=== PATIENT | female | born 2000 | race Caucasian/White ===

== ENCOUNTER 2022-07-11 22:24 | Emergency (ER) | payer MEDICAID, SELFPAY ==
--- NOTE | ~2022-07-11 | US_ITS ---
Pelvic ultrasound. Clinical History: First trimester , pelvic pain, evaluate for ectopic Technique: Realtime transabdominal and transvaginal scanning of the pelvis was performed. Color flow Doppler and Doppler spectral analysis were performed. Findings: The uterus is anteverted, and contains an intrauterine gestation. [place]-rump length of 5 cm corresponds to an estimated gestational age of 11 weeks 5 days. heart rate is 173 bpm. The right ovary measures 2.2 x 1.7 x 1.9 cm. No significant right ovarian or adnexal mass is seen. The left ovary measures 3.6 x 2.8 x 2.2 cm. No significant left ovarian or adnexal mass is seen. There is no evidence of free fluid in the cul de sac. Impression: Live intrauterine gestation with estimated gestational age of 11 weeks 5 days. heart rate is 17 3 bpm. Reviewed, dictated and finalized at [facility]. Impression: Live intrauterine gestation with estimated gestational age of 11 weeks 5 days. heart rate is 173 bpm.
[2022-07-11 22:27] VITALS: BP 102/81; PULSE 99; RESP 17; TEMP 36.4; O2SAT 100
[2022-07-11 22:49] VITALS: O2SAT 100
[2022-07-11 23:38] LABS: Influenza A QL RT-PCR Negative (Negative); Influenza B QL RT-PCR Negative (Negative); SARS-CoV-2 RNA PCR Negative (Negative)
--- NOTE | 2022-07-12 00:30 | ED.URI ---
HPI - URI/Sore Throat General Chief Complaint: Upper Respiratory Infection <RADHA Vaughan Last Filed: 07/12/22 03:58> Stated Complaint: headaches, sore throat <RADHA Vaughan Last Filed: 07/12/22 03:58> Time Seen by Provider: 07/11/22 22:32 <RADHA Vaughan Last Filed: 07/12/22 03:58> Source: patient <RADHA Vaughan Last Filed: 07/12/22 03:58> Mode of arrival: ambulatory <RADHA Vaughan Last Filed: 07/12/22 03:58> Limitations: no limitations <RADHA Vaughan Last Filed: 07/12/22 03:58> History of Present Illness HPI Narrative: Patient is a 22-year-old female who presents to the ED with multiple complaints. Patient reports having intermittent headaches and a sore throat since last. She denies any sick contacts. She has not taken anything for symptoms. She denies cough, fevers, vision changes. Patient also reports she is currently around 8 weeks gestation. She reports her last normal menstrual period of May 13. This makes her G2, P1. She is new to the area and does not currently have an OB to follow-up with. She has not had an ultrasound yet for this . She reports having intermittent nausea and vomiting for the last 1 month, worse over the last couple days. She reports she has been unable to keep down any food or drink over the last couple of days. She also reports having intermittent left lower abdominal pain for the last 1 week, again worse today. Denies any diarrhea, constipation, rectal bleeding, hematemesis, vaginal bleeding, vaginal discharge. <RADHA Vaughan Last Filed: 07/12/22 03:58> Related Data Allergies/Adverse Reactions: Allergies Allergy/AdvReac Type Severity Reaction Status Date / Time No Known Allergies Allergy Verified 07/11/22 22:53 <RADHA Vaughan Last Filed: 07/12/22 03:58> Review of Systems Review of Systems: CONSTITUTIONAL: Denies fever, chills, or sweats. EYES: Denies visual changes. ENT: See HPI. CARDIOVASCULAR: Denies chest pain. RESPIRATORY: Denies cough or dyspnea. GASTROINTESTINAL: See HPI. GENITOURINARY: Denies dysuria or hematuria. NEUROLOGIC: See HPI. <Trupti Moffett PA-C - Last Filed: 07/12/22 03:58> All systems reviewed & are unremarkable except as noted in HPI and below <Trupti Moffett PA-C - Last Filed: 07/12/22 03:58> PMFSH Past Medical History Medical History: Medical History (Updated 07/12/22 @ 03:54 by Trupti Moffett PA-C) No pertinent past medical history <Trupti Moffett PA-C - Last Filed: 07/12/22 03:58> Surgical History Surgical History: Surgical History (Updated 07/12/22 @ 00:33 by Trupti Moffett PA-C) No pertinent past surgical history <Trupti Moffett PA-C - Last Filed: 07/12/22 03:58> Social History Social History: Social History (Updated 07/12/22 @ 00:33 by Trupti Moffett PA-C) Smoking status: Never smoker <Trupti Moffett PA-C - Last Filed: 07/12/22 03:58> Exam Narrative: GENERAL: Well appearing, well-nourished, non-toxic, in no acute distress. HEAD: Normocephalic, atraumatic. EYES: PERRLA/EOMI, conjunctiva clear. ENT: Mild posterior pharynx erythema. No tonsillar hypertrophy or exudate. Uvula midline. NECK: Supple. No adenopathy, no masses. RESPIRATORY: Airway patent, respirations nonlabored. Clear to auscultation bilaterally, no rales, rhonchi, wheezing. CARDIOVASCULAR: Regular rate and rhythm without murmurs, rubs, or gallops. Radial pulses 2+ and equal bilaterally. ABDOMINAL: Soft, tenderness throughout lower abdomen, worst in left lower quadrant, nondistended, no hepatosplenomegaly. Normoactive BS. MUSCULOSKELETAL: Moves all extremities. Strength/ROM intact without gross deformities. SKIN: Warm, dry, normal color. No rashes. NEURO: A&O X3. Speech clear. Cranial nerves II-XII grossly intac
[2022-07-12] MEDS: SODIUM CHLORIDE 0.9% IV 1,000 ML 999 ML IV CONT (00:50)
[2022-07-12 01:00] LABS: Basophils Percent Auto 0.3 % (0.2-1.2); Eosinophils Percent Auto 0.3 % (0-4.4); Hematocrit 34.6 % (37.0-47.0); Hemoglobin 11.6 g/dL (12.0-15.0); Immature Granulocyte Absolute 0.05 K/mm3 (0.00-0.031); Immature Granulocyte Percent A 0.4 % (0-0.5); Lymphocytes Absolute Auto 1.58 K/mm3 (0.9-3.2); Lymphocytes Percent Auto 12.2 % (18.3-44.2); Mean Corpuscular HGB Conc 33.5 g/dl (32-36); Mean Corpuscular Hemoglobin 26.8 pg (26-34); Mean Corpuscular Volume 79.9 fl (80-100); Mean Platelet Volume 10.4 fl (7.4-10.4); Monocytes Absolute Auto 0.6 K/mm3 (0.1-0.6); Monocytes Percent Auto 4.2 % (2.6-8.5); Neutrophils Absolute Auto 10.7 K/mm3 (1.3-6.7); Neutrophils Percent Auto 82.6 % (45.5-73.1); Platelet Count Result 256 k/mm3 (150-375); Red Blood Count 4.33 M/mm3 (4.2-5.4); Red Cell Distribution Width 13.6 % (11.5-14.5)
[2022-07-12 01:25] LABS: Alanine Aminotransferase 20 U/L (6-35); Albumin Level 4.2 g/dL (3.5-5.1); Alkaline Phosphatase 49 U/L (38-126); Anion Gap 7 mmol/L (8-16); Aspartate Amino Transferase 21 U/L (14-36); Bilirubin,Total 0.6 mg/dL (0.2-1.3); Blood Urea Nitrogen 6 mg/dL (7-17); Calcium 8.8 mg/dL (8.4-10.2); Carbon Dioxide 25 mmol/L (22-30); Chloride 100 mmol/L (98-107); Estimated CRCL calculation 153 ml/min; Estimated Glomerular Filt Rate > 60; Glucose 89 mg/dL (65-110); Potassium 3.4 mmol/L (3.4-5.0); Sodium 132 mmol/L (137-145)
[2022-07-12 01:50] LABS: Strep Group A RT-PCR NOT DETECTED (Negative)
[2022-07-12 02:26] LABS: Appearance Urine Clear (Clear); Bacteria Urine None Seen /hpf; Bilirubin Urine Negative (Negative); Blood Urine 2+ (Negative); Color Urine Dark Yellow (Yellow); Glucose Urine UA Negative (Negative); Ketones Urine 4+ mg/dL (Negative); Leukocyte Esterase Ur 1+ LEU/UL (Negative); Need Manual Microscopic Reviewed; Nitrate Urine Negative (Negative); Non Pathogenic Casts 0-2; Protein Urine Trace mg/dL (Negative); RBC Urine 21-50 /hpf (0-2); Specific Grav Ur 1.026 (1.001-1.035); Squamous Epithelial Cell Urine Occasional /hpf (Few); WBC Urine 0-5 /hpf; pH Urine 6.5 (5.0-9.0)
[2022-07-12 02:28] LABS: Add Urine Microscopic? YES
[2022-07-12] MEDS: DEXTROSE 5%/LACTATED RINGERS 1,000 ML 100 ML IV CONT (03:07)
[2022-07-12] MEDS: CEPHALEXIN 500 MG CAPSULE PO (03:07)
[2022-07-12] MEDS: ACETAMINOPHEN 500 MG TABLET 1000 MG PO (03:12)
[2022-07-12 03:14] VITALS: BP 100/57; PULSE 78; RESP 14; O2SAT 100
[2022-07-12 04:48] VITALS: BP 100/60; PULSE 84; RESP 14; O2SAT 100
== END 2022-07-12 04:50 | disposition home or self-care (01) ==
PROVIDERS: Emergency Provider Physician Assistant
DX: O99.511 Diseases of the respiratory system complicating pregnancy, first trimester (principal); J06.9 Acute upper respiratory infection, unspecified; O21.9 Vomiting of pregnancy, unspecified; R82.998 Other abnormal findings in urine; Z20.822 Contact with and (suspected) exposure to COVID-19; Z3A.11 11 weeks gestation of pregnancy
CPT/HCPCS: 36415; 76801; 80053; 81001; 84702; 85025; 87636; 87651; 96360; 96361; 99284; A9270; J7030; J7121

== ENCOUNTER 2022-11-06 07:29 | Observation (INO) | payer OTHER, SELFPAY ==
[2022-11-06] VITALS (11 sets, daily range): BP systolic 92–111; BP diastolic 43–61; PULSE 73–98; BMI 27.2
--- NOTE | 2022-11-06 08:00 | OBADM ---
This patient, Harriet Bernal, admitted to the OB room 116 for observation. Patient/family oriented to hospital policies and general routines including ID bracelet, bed and alarms, visiting hours, pain management, procedures, bathroom and other care routines, personal items, smoking policy, room service/diet, and visiting hours. Patient/Family are encouraged to report perceived risks to care and to ask questions if they do not understand what they are told or what they should do.
--- NOTE | 2022-11-06 08:08 | PC.NURSE ---
Dr. Dejesus returned call and informed of this 28 4/7 wks gestation walk in pt who arrived by ambulance with initial c/o constant right upper abdominal pain and shortly after arrival started having intermittent left lower abdominal cramping that correlated with contractions she is having. The RUQ pain has decreased per pt. MD informed of frequent contraction that palpate mild. Order received for SVE and Brethine.
--- NOTE | 2022-11-06 08:22 | PC.NURSE ---
Dr. Knight came to see pt per Dr. Dejesus's request. Additional orders received for IV fluids, Tylenol, and Zofran if needed.
[2022-11-06] MEDS: TERBUTALINE SULFATE 1 MG/ML VIAL 0.25 MG SUB-Q ×2 (08:23→11:03)
--- NOTE | 2022-11-06 08:51 | PM.OBTRLD ---
OB - Triage/Final Diagnosis Visit Information Date of evaluation: 11/06/22 Reason for evaluation: threatened labor Comments/Additional reasons for admission: I have assessed the risk for this patient, Harriet Bernal, and determined that she would benefit from observation care. Evaluation Vital signs: Vital Signs - 24 hr 11/06/22 07:55 11/06/22 08:00 11/06/22 08:22 Pulse Rate 73 82 87 Blood Pressure 106/50 L 111/61 105/52 L 11/06/22 08:30 Pulse Rate 92 Blood Pressure 97/43 L
--- NOTE | 2022-11-06 08:55 | PC.NURSE ---
Dr. Dejesus called back to check on pt. Informed contractions have resolved since Brethine given. Order received for labs.
[2022-11-06] MEDS: LACTATED RINGERS 1,000 ML 999 ML IV CONT (09:09)
[2022-11-06 09:18] LABS: Basophils Percent Auto 0.4 % (0.2-1.2); Eosinophils Absolute Auto 0.1 K/mm3 (0-0.3); Eosinophils Percent Auto 0.5 % (0-4.4); Hematocrit 31.3 % (37.0-47.0); Hemoglobin 9.7 g/dL (12.0-15.0); Immature Granulocyte Absolute 0.05 K/mm3 (0.00-0.031); Immature Granulocyte Percent A 0.4 % (0-0.5); Lymphocytes Absolute Auto 2.26 K/mm3 (0.9-3.2); Lymphocytes Percent Auto 20.2 % (18.3-44.2); Mean Corpuscular Hemoglobin 27.2 pg (26-34); Mean Corpuscular Volume 87.7 fl (80-100); Mean Platelet Volume 11.1 fl (7.4-10.4); Monocytes Absolute Auto 0.5 K/mm3 (0.1-0.6); Neutrophils Absolute Auto 8.3 K/mm3 (1.3-6.7); Neutrophils Percent Auto 74.5 % (45.5-73.1); Platelet Count Result 212 k/mm3 (150-375); Red Blood Count 3.57 M/mm3 (4.2-5.4); Red Cell Distribution Width 13.5 % (11.5-14.5); White Blood Count 11.2 K/mm3 (4.5-10.0)
[2022-11-06 09:31] LABS: Alanine Aminotransferase 30 U/L (6-35); Albumin Level 3.2 g/dL (3.5-5.1); Alkaline Phosphatase 71 U/L (38-126); Amylase 78 U/L (30-110); Anion Gap 3 mmol/L (8-16); Aspartate Amino Transferase 65 U/L (14-36); Bilirubin,Total 0.2 mg/dL (0.2-1.3); Blood Urea Nitrogen 7 mg/dL (7-17); Calcium 8.3 mg/dL (8.4-10.2); Carbon Dioxide 23 mmol/L (22-30); Chloride 106 mmol/L (98-107); Estimated Glomerular Filt Rate > 60; Glucose 135 mg/dL (65-110); Lipase 102 U/L (23-300); Potassium 3.2 mmol/L (3.4-5.0); Sodium 132 mmol/L (137-145)
--- NOTE | 2022-11-06 10:30 | PC.NURSE ---
Dr. Dejesus informed of lab results, return of regular uterine irritability, but I just had pt get up to void. If irritability doesn't resolve with emptying bladder, OK to give 2nd dose of Brethine. May discharge to home to follow up with her OB and to send copy of labs to OB's office.
[2022-11-06 10:38] LABS: Appearance Urine Clear (Clear); Bacteria Urine None Seen /hpf; Bilirubin Urine Negative (Negative); Color Urine Yellow (Yellow); Glucose Urine UA Negative (Negative); Ketones Urine Negative (Negative); Leukocyte Esterase Ur Trace LEU/UL (Negative); Nitrate Urine Negative (Negative); Non Pathogenic Casts 0-2; Protein Urine Negative (Negative); Specific Grav Ur 1.017 (1.001-1.035); Squamous Epithelial Cell Urine None seen /hpf (Few); WBC Urine 0-5 /hpf; pH Urine 6.5 (5.0-9.0)
[2022-11-06 10:40] LABS: Add Urine Microscopic? YES
--- NOTE | 2022-11-06 12:37 | PC.NURSE ---
Consent was obtained to release lab results; faxed them to the office of Meme Alvarado CNM with [facility].
== END 2022-11-06 12:52 | disposition home or self-care (01) ==
LOC: ANHOBPP 12:24 → ANHLDR 12:54
PROVIDERS: Admitting Provider Obstetrics & Gynecology; Visit Provider Obstetrics & Gynecology
DX: O47.03 False labor before 37 completed weeks of gestation, third trimester (principal); Z3A.28 28 weeks gestation of pregnancy
CPT/HCPCS: 36415; 80053; 81001; 82150; 83690; 85025; 96360; 96372; G0378; G0379; J3105; J7120

== ENCOUNTER 2023-02-12 05:30 | Emergency (ER) | payer OTHER, SELFPAY ==
[2023-02-12] VITALS (36 sets, daily range): BP systolic 87–107; BP diastolic 44–62; PULSE 54–77; RESP 9–26; TEMP 36.9; O2SAT 98–100
--- NOTE | ~2023-02-12 | CT_ITS ---
EXAMINATION: CT abdomen pelvis w con DATE: 02/12/2023 09:30 INDICATION: Epigastric pain, nausea and vomiting. 2 weeks . TECHNIQUE: Computed tomography (CT) of the abdomen and pelvis was performed with 100 cc Omnipaque 350 intravenous contrast. The dose-length product was 365.37 mGy-cm. Automated exposure control and iter ative reconstruction technique were employed. COMPARISON: None. FINDINGS: There is a 3 mm right lower lobe nodule. No significant pleural or pericardial effusion. He art size normal. No significant vascular abnormality. No lymphadenopathy. Colonic diverticulosis with out evidence for diverticulitis. The liver, spleen, pancreas, adrenal glands and kidneys are unremarkable. Uterus is enlarged with flu id in the endometrium. Gas noted in the cervix. Bladder is decompressed. IMPRESSION: 1. Thickened endometrium containing fluid with gas in the cervix. Findings are most likely attributab le to recent childbirth, although given the history consider retained products of conception. Endomet rium measures 12 mm greatest thickness on sagittal reconstructions. Reviewed, dictated and finalized at location L. [employer] SUPERVIS[employer] IMPRESSION: 1. Thickened endometrium containing fluid with gas in the cervix. Findings are most likely attributable to recent childbirth, although given the history consi dorie retained products of conception. Endometrium measures 12 mm greatest thickn ess on sagittal reconstructions.
--- NOTE | ~2023-02-12 | US_ITS ---
EXAMINATION: US pelvic complete DATE: 02/12/2023 10:21 INDICATION: Evaluate for retained products of conception Comparison:No prior studies for comparison. TECHNIQUE: Multiple transabdominal and endovaginal sonographic images of the pelvis performed. FINDINGS: The uterus measures 10 x 5 x 7 cm. The endometrial complex is thickened and heterogeneous m easuring 13 mm. Cannot exclude retained products of conception. The right ovary is not visualized. Left ovary measures 4.3 x 2.8 x 3.2 cm. There is no free fluid in the pelvis. There are no abnormal masses seen on either side. IMPRESSION: 1. Thickened heterogeneous endometrium measuring 13 mm. Cannot exclude retained products of conceptio n. Reviewed, dictated and finalized at location L. [facility] IMPRESSION: 1. Thickened heterogeneous endometrium measuring 13 mm. Cannot exclude retained products of conception.
--- NOTE | 2023-02-12 06:21 | ECG_ITS ---
Measurements Intervals [place] Rate: 63 P: 52 AR: 137 QRS: 43 QRSD: 87 T: 52 QT: 378 QTc: 389 Interpretive Statements SINUS RHYTHM BASELINE ARTIFACT- I, II, AVR NORMAL ECG NO PREVIOUS ECG AVAILABLE FOR COMPARISON Electronically Signed On 02-12-2023 6:51:02 [employer] by Genaro Magaña D.O.
[2023-02-12 06:33] LABS: Basophils Absolute Auto 0.1 K/mm3 (0.0-0.1); Basophils Percent Auto 0.4 % (0.2-1.2); Eosinophils Absolute Auto 0.2 K/mm3 (0-0.3); Eosinophils Percent Auto 1.5 % (0-4.4); Hematocrit 37.8 % (37.0-47.0); Hemoglobin 11.4 g/dL (12.0-15.0); Immature Granulocyte Absolute 0.04 K/mm3 (0.00-0.031); Immature Granulocyte Percent A 0.4 % (0-0.5); Lymphocytes Absolute Auto 2.71 K/mm3 (0.9-3.2); Lymphocytes Percent Auto 24.3 % (18.3-44.2); Mean Corpuscular HGB Conc 30.2 g/dl (32-36); Mean Corpuscular Hemoglobin 23.9 pg (26-34); Mean Corpuscular Volume 79.4 fl (80-100); Mean Platelet Volume 10.2 fl (7.4-10.4); Monocytes Absolute Auto 0.6 K/mm3 (0.1-0.6); Monocytes Percent Auto 5.2 % (2.6-8.5); Neutrophils Absolute Auto 7.6 K/mm3 (1.3-6.7); Neutrophils Percent Auto 68.2 % (45.5-73.1); Platelet Count Result 348 k/mm3 (150-375); Red Blood Count 4.76 M/mm3 (4.2-5.4); Red Cell Distribution Width 16.2 % (11.5-14.5); White Blood Count 11.1 K/mm3 (4.5-10.0)
[2023-02-12 07:04] LABS: Alanine Aminotransferase 78 U/L (6-35); Albumin Level 4.1 g/dL (3.5-5.1); Alkaline Phosphatase 63 U/L (38-126); Anion Gap 11 mmol/L (8-16); Aspartate Amino Transferase 99 U/L (14-36); Bilirubin,Total 0.5 mg/dL (0.2-1.3); Blood Urea Nitrogen 13 mg/dL (7-17); Calcium 9.1 mg/dL (8.4-10.2); Carbon Dioxide 22 mmol/L (22-30); Chloride 105 mmol/L (98-107); Estimated CRCL calculation 121 ml/min; Estimated Glomerular Filt Rate > 60; Glucose 112 mg/dL (65-110); Lipase 122 U/L (23-300); Potassium 3.6 mmol/L (3.4-5.0); Sodium 138 mmol/L (137-145)
[2023-02-12 08:46] LABS: Appearance Urine Cloudy (Clear); Bacteria Urine None Seen /hpf; Bilirubin Urine Negative (Negative); Blood Urine 2+ (Negative); Color Urine Yellow (Yellow); Glucose Urine UA Negative (Negative); Ketones Urine Negative (Negative); Leukocyte Esterase Ur Trace LEU/UL (Negative); Nitrate Urine Negative (Negative); Non Pathogenic Casts 0-2; Protein Urine Negative (Negative); Specific Grav Ur 1.023 (1.001-1.035); Squamous Epithelial Cell Urine None seen /hpf (Few); WBC Urine 0-5 /hpf; pH Urine 5.5 (5.0-9.0)
[2023-02-12 08:47] LABS: Add Urine Microscopic? YES
[2023-02-12] MEDS: SODIUM CHLORIDE 0.9% IV 1,000 ML 999 ML IV CONT (09:13)
[2023-02-12] MEDS: BELLADONNA ALK/PHENOB ELIX 10 ML, MAG HYDROX/ALUMINUM HYD/SIMETH 30 ML, LIDOCAINE HCL 2... PO (09:15)
--- NOTE | 2023-02-12 09:43 | ED.GENADULT ---
HPI - General Adult General Chief complaint: Abdominal Pain Stated complaint: abd pain Time Seen by Provider: 02/12/23 07:28 History of Present Illness HPI narrative: 22-year-old female that delivered approximately 25 days ago presenting to the emergency department for evaluation of epigastric pain. patient states that last evening she developed some epigastric pain and epigastric pain persisted. Patient states after she had nausea and vomiting secondary to epigastric pain that she developed some left lower quadrant pain. Patient states she is still having some vaginal bleeding but it is minor. Patient denies any vaginal discharge Patient delivered at [facility] in [facility] to Dr Alvarado Related Data Home Medications Medication Instructions Recorded Confirmed vit no.95-ferrous 1 tablet PO DAILY 11/06/22 11/06/22 fumarate 28 mg-folic acid 800 mcg tablet () Allergies Allergy/AdvReac Type Severity Reaction Status Date / Time No Known Allergies Allergy Verified 07/11/22 22:53 Review of Systems Review of Systems: All systems reviewed & are unremarkable except as noted in HPI and below PMFSH Past Medical History Medical History (Updated 02/12/23 @ 11:20 by Marco A Massey MD) No pertinent past medical history Surgical History Surgical History (Updated 07/12/22 @ 00:33 by Trupti Moffett PA-C) No pertinent past surgical history Social History Social History (Updated 07/12/22 @ 00:33 by Trupti Moffett PA-C) Smoking status: Never smoker Exam Narrative: APPEARANCE: Well appearing, no pain, no distress, well-nourished. HEAD: normocephalic, atraumatic. EYES: PERRLA/EOMI, conjunctivae clear. NOSE: Normal no drainage EARS:TMS clear with good light reflex. THROAT: Pharynx clear, no exudate. NECK: Supple. No adenopathy, no masses. RESPIRATORY: Airway patent, respirations nonlabored. Clear to auscultation bilaterally, no rales, rhonchi, wheezing. CARDIOVASCULAR: Regular rate and rhythm without murmurs rubs or gallops. ABDOMINAL: epigastric tenderness to palpation MUSCULOSKELETAL: Moves all extremities. Strength/ROM intact, No edema, No calf tenderness. NEURO: Alert. Cranial nerves II through XII intact. grossly intact SKIN: Warm, dry. Normal Color Course Course Emergency Course: 22-year-old female who delivered approximately 25 days ago presented emergency department for evaluation epigastric and lower abdominal pain. Patient reports the lower abdominal pain started after she began having lots of nausea and vomiting. Patient is afebrile but does have a leukocytosis of 11.1, patient's hemoglobin is 11.4. No significant abnormalities on the CMP other than some mildly elevated AST and ALT. UA does show some red blood cells but patient states she is still having some light bleeding. CT was concerning for possible retained products of conception and dedicated ultrasound also showed this possibility. I discussed the case with the mid level practitioner Christiano at [facility] and they were updated on the results of the workup. They are comfortable the patient having close outpatient follow-up. They did recommend giving 600 mcg of Cytotec p.o.. Vital Signs Vital signs: Vital Signs Temperature 98.5 F 02/12/23 05:37 Pulse Rate 70 02/12/23 05:37 Respiratory Rate 22 H 02/12/23 05:37 Blood Pressure 107/50 L 02/12/23 05:37 Pulse Oximetry 100 02/12/23 05:37 Oxygen Delivery Room Air 02/12/23 05:37 Temperature 98.5 F 02/12/23 05:37 Pulse Rate 59 L 02/12/23 11:02 Respiratory Rate 13 02/12/23 11:02 Blood Pressure 103/58 L 02/12/23 10:21 Pulse Oximetry 100 02/12/23 11:02 Oxygen Delivery Room Air 02/12/23 05:37 Medical Decision Making Differential Diagnosis Differential Diagnosis: gastritis, esophagitis, diverticulitis, retained products of conception Vital Signs Vital Signs: Vital Signs Temperature 98.5 F 02/12/23 05:37 Pulse Rat
[2023-02-12] MEDS: PANTOPRAZOLE SODIUM IV 40 MG VIAL IV PUSH (10:57)
[2023-02-12] MEDS: miSOPROStol 200 MCG TABLET 600 MCG PO (11:27)
== END 2023-02-12 11:30 | disposition home or self-care (01) ==
PROVIDERS: Emergency Medicine; Emergency Provider Emergency Medicine
DX: R10.13 Epigastric pain (principal); R10.32 Left lower quadrant pain
CPT/HCPCS: 36415; 74177; 76856; 80053; 81001; 81025; 83690; 85025; 93005; 96361; 96374; 99284; A9270; C9113; J7030; Q9967

== ENCOUNTER 2023-06-28 23:20 | Emergency (ER) | payer OTHER, SELFPAY ==
[2023-06-28 23:21] VITALS: PULSE 91; RESP 13; TEMP 36.4; O2SAT 100
--- NOTE | 2023-06-28 23:27 | ECG_ITS ---
SEE SCANNED COPY FOR CONFIRMED REPORT MTDD
[2023-06-28 23:45] LABS: Basophils Absolute Auto 0.1 K/mm3 (0.0-0.1); Basophils Percent Auto 0.6 % (0.2-1.2); Eosinophils Absolute Auto 0.2 K/mm3 (0-0.3); Eosinophils Percent Auto 1.8 % (0-4.4); Hematocrit 35.3 % (37.0-47.0); Hemoglobin 11.4 g/dL (12.0-15.0); Immature Granulocyte Absolute 0.02 K/mm3 (0.00-0.031); Immature Granulocyte Percent A 0.2 % (0-0.5); Lymphocytes Absolute Auto 3.29 K/mm3 (0.9-3.2); Lymphocytes Percent Auto 36.3 % (18.3-44.2); Mean Corpuscular HGB Conc 32.3 g/dl (32-36); Mean Corpuscular Hemoglobin 25.3 pg (26-34); Mean Corpuscular Volume 78.4 fl (80-100); Mean Platelet Volume 10.3 fl (7.4-10.4); Monocytes Absolute Auto 0.4 K/mm3 (0.1-0.6); Monocytes Percent Auto 4.9 % (2.6-8.5); Neutrophils Absolute Auto 5.1 K/mm3 (1.3-6.7); Neutrophils Percent Auto 56.2 % (45.5-73.1); Platelet Count Result 341 k/mm3 (150-375); Red Cell Distribution Width 14.2 % (11.5-14.5); White Blood Count 9.1 K/mm3 (4.5-10.0)
[2023-06-28] MEDS: FAMOTIDINE 20 MG/2 ML VIAL IV PUSH (23:46)
[2023-06-28] MEDS: SODIUM CHLORIDE 0.9% IV 1,000 ML 999 ML IV CONT (23:46)
[2023-06-28] MEDS: KETOROLAC 15 MG/ML VIAL (*BKC) IV PUSH (23:46)
--- NOTE | 2023-06-28 23:51 | ED.GENADULT ---
HPI - General Adult General Chief complaint: Abdominal Pain Stated complaint: abd pain Time Seen by Provider: 06/28/23 23:32 History of Present Illness HPI narrative: This is a 23-year-old female w/ pmh of anxiety presenting with epigastric pain. Patient developed sharp epigastric pain that was nonradiating, 6 out 10 intensity, that comes and goes prior to arrival. After she developed pain she became very anxious and then developed shortness of breath. He anxiety and shortness of breath have since resolved. Patient says she has had epigastric pain like this in the past although she does not believe that she is on Pepcid or an antacid. Patient denies fevers, chills, chest pain, difficulty breathing, nausea vomiting, urinary symptoms, diarrhea or constipation Related Data Home Medications Medication Instructions Recorded Confirmed vit no.95-ferrous 1 tablet PO DAILY 11/06/22 11/06/22 fumarate 28 mg-folic acid 800 mcg tablet () Allergies Allergy/AdvReac Type Severity Reaction Status Date / Time No Known Allergies Allergy Verified 06/28/23 23:28 [facility] Past Medical History Medical History Anxiety No pertinent past medical history Surgical History Surgical History No pertinent past surgical history Social History Social History Smoking status: Never smoker Exam Narrative: APPEARANCE: No apparent distress. Head: atraumatic. EYES: EOMI, NOSE: Atraumatic NECK: Trachea midline RESPIRATORY: No increased rate of breathing CARDIOVASCULAR: RRR, ABDOMINAL: Non-distended, Soft no guarding rebound MUSCULOSKELETAl: No obvious deformities NEURO: Alert. Moving 4/4 extremities SKIN:: Warm, dry. Normal color PSYCHIATRIC: Normal affect Course Vital Signs Vital signs: Vital Signs Temperature 97.6 F 06/28/23 23:21 Pulse Rate 91 06/28/23 23:21 Respiratory Rate 13 06/28/23 23:21 Pulse Oximetry 100 06/28/23 23:21 Oxygen Delivery Room Air 06/28/23 23:21 Temperature 97.6 F 06/28/23 23:21 Pulse Rate 79 06/29/23 00:11 Respiratory Rate 12 06/29/23 00:11 Blood Pressure 103/65 06/29/23 00:11 Pulse Oximetry 97 06/29/23 00:11 Oxygen Delivery Room Air 06/28/23 23:21 Medical Decision Making MDM Narrative Medical decision making narrative: -Course: 23-year-old female presenting with epigastric pain. Patient also an anxiety attack about all those symptoms have resolved by time she arrived in the ED Laboratory studies within acceptable limits. Presentation consistent with gastritis. Patient was treated with improvement in her symptoms. On re-evaluation vital signs are stable. Abdominal exam is benign. patient discharged with primary care follow-up -DDX includes but is not limited to: gastritis, pud, anxiety, gallbladder disease, viral illness -Co-morbidities complicating care: anxiety -Independent interpretation of studies: labs reviewed within normal limits. negative -Interventions: Toradol, 1 L normal saline, Pepcid -Shared decision making / Disposition: discharged -RX Pepcid Vital Signs Vital Signs: Vital Signs Temperature 97.6 F 06/28/23 23:21 Pulse Rate 91 06/28/23 23:21 Respiratory Rate 13 06/28/23 23:21 Pulse Oximetry 100 06/28/23 23:21 Oxygen Delivery Room Air 06/28/23 23:21 Temperature 97.6 F 06/28/23 23:21 Pulse Rate 79 06/29/23 00:11 Respiratory Rate 12 06/29/23 00:11 Blood Pressure 103/65 06/29/23 00:11 Pulse Oximetry 97 06/29/23 00:11 Oxygen Delivery Room Air 06/28/23 23:21 Lab Data 06/28/23 23:39 06/28/23 23:39 Labs: Lab Results 06/28/23 Range/Units 23:39 WBC 9.1 (4.5-10.0) K/mm3 RBC 4.50 (4.2-5.4) M/mm3 Hgb 11.4 L (12.0-15.0) g/dL Hct 35.3 L (37.0-47.0) %
[2023-06-28 23:55] LABS: Alanine Aminotransferase 19 U/L (6-35); Albumin Level 4.6 g/dL (3.5-5.1); Alkaline Phosphatase 64 U/L (38-126); Anion Gap 9 mmol/L (4-12); Aspartate Amino Transferase 22 U/L (14-36); Bilirubin,Total 0.2 mg/dL (0.2-1.3); Blood Urea Nitrogen 12 mg/dL (7-17); Calcium 9.6 mg/dL (8.4-10.2); Carbon Dioxide 23 mmol/L (22-30); Chloride 105 mmol/L (98-107); Estimated CRCL calculation 142 ml/min; Estimated Glomerular Filt Rate > 60; Glucose 113 mg/dL (65-110); Potassium 3.5 mmol/L (3.4-5.0); Sodium 137 mmol/L (137-145)
[2023-06-29 00:11] VITALS: BP 103/65; PULSE 79; RESP 12; O2SAT 97
[2023-06-29 00:39] LABS: Lipase 119 U/L (23-300)
[2023-06-29 01:40] VITALS: BP 111/67; PULSE 84; RESP 14; O2SAT 99
== END 2023-06-29 01:41 | disposition home or self-care (01) ==
PROVIDERS: Emergency Provider Emergency Medicine
DX: F41.9 Anxiety disorder, unspecified (principal); R10.13 Epigastric pain; G89.29 Other chronic pain
CPT/HCPCS: 36415; 80053; 81025; 83690; 85025; 93005; 96361; 96374; 96375; 99284; J1885; J7030

== ENCOUNTER 2023-07-05 15:25 | Emergency (ER) | payer OTHER, SELFPAY ==
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
--- NOTE | ~2023-07-05 | CT_ITS ---
EXAMINATION: CT abdomen pelvis w con DATE: 07/05/2023 18:58 INDICATION: Upper abdominal pain. Nausea and vomiting. TECHNIQUE: Computed tomography (CT) of the abdomen and pelvis was performed with 100 mL Omnipaque 350 intravenous contrast. Automated exposure control and iterative reconstruction technique were employe d. The dose-length product was 1093.54 mGy-cm. COMPARISON: CT abdomen and pelvis 02/12/2023 FINDINGS: The visualized portions of the lung bases are clear without pneumonia or pleural effusion. The heart size is normal. No pericardial effusion. The liver, gallbladder, spleen, pancreas, adrenal glands, and kidneys are normal. There are no dilated loops of bowel. The appendix is normal. There ar e no pathologically enlarged lymph nodes. There is physiologic fluid in the pelvis. The bones are unr emarkable. IMPRESSION: 1. No etiology for the patient's symptoms. Reviewed, dictated and finalized at location E.
[2023-07-05 15:28] VITALS: BP 113/63; PULSE 98; RESP 16; TEMP 37.1; O2SAT 100
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
[2023-07-05] MEDS: ACETAMINOPHEN 500 MG TABLET 1000 MG PO (15:40)
[2023-07-05] MEDS: ONDANSETRON HCL ODT 4 MG TABLET PO (15:40)
[2023-07-05 15:59] LABS: Basophils Percent Auto 0.5 % (0.2-1.2); Eosinophils Absolute Auto 0.1 K/mm3 (0-0.3); Hemoglobin 12.1 g/dL (12.0-15.0); Immature Granulocyte Absolute 0.02 K/mm3 (0.00-0.031); Immature Granulocyte Percent A 0.3 % (0-0.5); Lymphocytes Absolute Auto 2.29 K/mm3 (0.9-3.2); Lymphocytes Percent Auto 28.7 % (18.3-44.2); Mean Corpuscular HGB Conc 31.8 g/dl (32-36); Mean Corpuscular Hemoglobin 25.5 pg (26-34); Mean Platelet Volume 10.2 fl (7.4-10.4); Monocytes Absolute Auto 0.6 K/mm3 (0.1-0.6); Neutrophils Percent Auto 62.5 % (45.5-73.1); Platelet Count Result 324 k/mm3 (150-375); Red Blood Count 4.75 M/mm3 (4.2-5.4); Red Cell Distribution Width 14.6 % (11.5-14.5)
[2023-07-05 16:12] LABS: Alanine Aminotransferase 17 U/L (6-35); Albumin Level 4.5 g/dL (3.5-5.1); Alkaline Phosphatase 61 U/L (38-126); Anion Gap 7 mmol/L (4-12); Aspartate Amino Transferase 21 U/L (14-36); Bilirubin,Total 0.3 mg/dL (0.2-1.3); Blood Urea Nitrogen 11 mg/dL (7-17); Calcium 9.2 mg/dL (8.4-10.2); Carbon Dioxide 25 mmol/L (22-30); Chloride 105 mmol/L (98-107); Estimated CRCL calculation 117 ml/min; Estimated Glomerular Filt Rate > 60; Glucose 88 mg/dL (65-110); Lipase 86 U/L (23-300); Potassium 3.8 mmol/L (3.4-5.0); Sodium 137 mmol/L (137-145)
[2023-07-05 17:46] LABS: Appearance Urine Cloudy (Clear); Bacteria Urine 1+ /hpf; Bilirubin Urine Negative (Negative); Blood Urine Trace (Negative); Color Urine Yellow (Yellow); Glucose Urine UA Negative (Negative); Ketones Urine Trace mg/dL (Negative); Leukocyte Esterase Ur 2+ LEU/UL (Negative); Nitrate Urine Negative (Negative); Non Pathogenic Casts 0-2; Protein Urine Negative (Negative); Squamous Epithelial Cell Urine Occasional /hpf (Few); Urobilinogen Urine 0.2 mg/dL (<2.0); WBC Urine 21-50 /hpf (0-3); pH Urine 5.5 (5.0-9.0)
[2023-07-05 17:48] LABS: Specific Grav Ur 1.046 (1.001-1.035)
[2023-07-05 17:49] LABS: Add Urine Microscopic? YES
[2023-07-05] MEDS: KETOROLAC (*BKC) 60 MG/2 ML VIAL IM (18:39)
[2023-07-05] MEDS: CYCLOBENZAPRINE HCL 5 MG TABLET PO (18:39)
[2023-07-05 18:43] VITALS: BP 99/52; PULSE 80; RESP 17; O2SAT 100
[2023-07-05] MEDS: MECLIZINE HCL 25 MG TABLET PO (19:10)
[2023-07-05] MEDS: SODIUM CHLORIDE 0.9% IV 1,000 ML 999 ML IV CONT (19:13)
[2023-07-05 19:53] VITALS: BP 95/53; PULSE 89; O2SAT 100
[2023-07-05 20:27] VITALS: BP 136/77; PULSE 85; RESP 18; O2SAT 100
== END 2023-07-05 20:47 | disposition home or self-care (01) ==
PROVIDERS: Physician Assistant; Emergency Provider Physician Assistant
DX: S16.1XXA Strain of muscle, fascia and tendon at neck level, initial encounter (principal); R11.0 Nausea; V43.52XA Car driver injured in collision with other type car in traffic accident, initial encounter
CPT/HCPCS: 36415; 70450; 72125; 74177; 80053; 81001; 81025; 83690; 85025; 87086; 87088; 96360; 96372; 99284; A9270; J1885; J7030; Q9967